=== PATIENT | male | born 1955 | race Caucasian/White ===

== ENCOUNTER 2017-10-28 11:11 | Emergency (ER) | payer OTHER ==
[2017-10-28 11:26] VITALS: RESP 18; TEMP 97.7; O2SAT 96
[2017-10-28] MEDS ORDERED: ACETAMINOPHEN 500 MG TAB PO ONE (11:50)
[2017-10-28] MEDS ORDERED: IBUPROFEN 600 MG TAB PO ONE (11:51)
[2017-10-28] MEDS ORDERED: DIAZEPAM 5 MG TAB PO ONE (11:51)
[2017-10-28] MEDS ORDERED: DIAZEPAM 5 MG PREPACK#4 BTL TAKEHOME ONE (12:51)
--- NOTE | 2017-10-28 12:53 | EDPHY ---
H & P Time Seen by Provider: 10/28/17 11:30 HPI/ROS: This patient presents with right lumbar back pain associated with muscle spasms. He explains that he intermittently has right lumbar pain that worsened significantly after shoveling snow , 4 days prior to arrival. His symptoms increased yesterday-Saturday with severe intensity at that time with partial relief from ibuprofen and 1 his cyclobenzaprine 10 mg tabs last night. He had 600 mg of ibuprofen again at 4:00 a.m. had no other medications this morning reports that the pain is slightly improved compared to yesterday currently 7/10 in intensity with movement. The nature the pain is achy. It does not radiate down his leg that he felt a did a bit yesterday. He denies any focal weakness. ROS: No fevers or chills. No other constitutional symptoms HEENT: No complaints line pulmonary: No cough shortness of breath Cardiovascular: No lightheadedness or other complaints including no chest pain GI: No abdominal pain. : No hematuria dysuria or other symptoms. Integumentary: No skin rash Neuro: He reports chronic paresthesias bilateral toes throughout all toes was had a negative workup for neuropathy in the past. No new focal weakness or numbness. No bowel or bladder incontinence. 10 point ROS is otherwise negative. Past Medical/Surgical History: Moderate obesity Chronic paresthesias in his toes. Social History: Occasional alcohol. No drug use. Smoking Status: Never smoked Physical Exam: Physical Exam Vital signs are normal. General: No acute distress Eyes: Pupils equal and react to light. Extraocular motions are intact. Lungs: Clear to auscultation bilaterally. No respiratory distress. Cardiac: Regular rate and rhythm with no murmur gallop rub. No pulsatile abdominal masses. Femoral pulses are 2+ and symmetric bilaterally. Abdomen: Soft, nontender Back: No midline tenderness. Patient has right paraspinous muscular tenderness with muscle spasm extends to the mid thoracic region. Straight leg raise is negative bilaterally. Skin: No rash or pallor. Neuro: Alert. Patient has 2+ symmetric patellar DTRs and weak but symmetric Achilles DTRs bilaterally. She maintains 5/5 strength in great toe dorsiflexion plantar flexion bilaterally. No light touch sensory deficits in his lower extremities. No saddle anesthesia Initial differential diagnosis: Low back strain, degenerative disc disease with exacerbation pain, disc herniation Constitutional: Initial Vital Signs Temperature (C) 36.5 C 10/28/17 11:24 Heart Rate 94 10/28/17 11:24 Respiratory Rate 18 10/28/17 11:24 Blood Pressure 165/100 H 10/28/17 11:24 O2 Sat (%) 96 10/28/17 11:24 O2 Delivery Mode Room Air Allergies/Adverse Reactions: diltiazem Allergy (Verified 10/28/17 11:57) pt reports rash Home Medications: Medication Instructions Recorded Levothyroxine 10/28/17 Methocarbamol [Robaxin 750 mg (*)] 750 - 1,500 mg PO QID PRN #30 tab 10/28/17 Metoprolol Tartrate 10/28/17 MDM/Departure - MDM Diagnostics: Lumbar spine x-rays: DJD no acute abnormalities Imaging Results: Imaging Impressions Lumbar Spine X-Ray 10/28/17 11:51 Impression: 1. No acute abnormality seen associated with the lumbar spine. 2. Right-sided hypertrophic osteophytes at L2-L3 and L3-L4. 3. Facet hypertrophy along the right side of the upper lumbar spine and more prominent along the left side of the lower lumbar spine. Imaging: Discussed imaging studies w/ body recall instructor Radiologist Medications Given: Discontinued Medications Acetaminophen (Tylenol) 1,000 mg PO EDNOW ONE Stop: 10/28/17 11:51 Last Admin: 10/28/17 11:55 Dose: 1,000 mg Diazepam (Valium) 5 mg PO EDNOW ONE Stop: 10/28/17 11:52 Last Admin: 10/28/17 11:54 Dose: 5 mg Diazepam (Valium 5 Mg Prepack#4) 1 btl TAKEHOME EDNOW ONE Stop: 10/28/17 12:52 Last Admin: 10/28/17 12:56 Dose: 1 btl Ibuprofen (Motrin) 600 mg PO EDNOW ONE Stop: 10/28/17 11:52 Last Admin: 10/28/17 11:55 Dose: 600 mg ED Course/Re-evaluation: Patient treated with ibuprofen a Valium and Tylenol with improvement. I counseled regarding low back strain, back stretches regarding his radiographs Discussion: Patient with low back strain without evidence of radiculopathy, cauda equina, vascular pathology or other concerning findings. Patient does understand the need to return emergency department if he has any significant worsening symptoms despite treatment plan. Will treat him with methocarbamol, ibuprofen Tylenol - Depart Disposition: Home, Routine, Self-Care Clinical Impression: Low back strain Qualifiers: Encounter type: initial encounter Qualified Code(s): S39.012A - Strain of muscle, fascia and tendon of lower back, initial encounter Condition: Good Instructions: Diazepam (By mouth), Low Back Strain (ED) Additional Instructions: DX: Low back strain Plan: Ibuprofen 400-600 mg per 6 hours regularly for the next week then as needed. For today, use Valium muscle relaxant if needed. 1 pill per [address], alcohol on this medication Methocarbamol muscle relaxants as needed once he feel this script. Tylenol in addition as needed for pain. Starts daily stretches prior to taking muscle relaxants and Vicodin in the morning. 3-5 minutes each of: "Butterfly stretch," "Sphinx stretch", "pigeon stretch", and hamstring stretch. Avoid lifting more than 5-10 pounds until symptoms improve. Call your primary care physician for a followup appointment in 3-7 days. Go to the emergency department for worsening of your symptoms despite the treatment plan. Prescriptions: Methocarbamol [Robaxin 750 mg (*)] 750 - 1,500 mg PO QID PRN #30 tab PRN Reason: Muscle Spasms Referrals: SUMIT SCHMITZ [Primary Care Provider] - As per Instructions
[2017-10-28 13:06] VITALS: BP 159/99; PULSE 92
== END 2017-10-28 13:00 | disposition home or self-care (01) ==
LOC: CED 11:11
DX: S39.012A Strain of muscle, fascia and tendon of lower back, initial encounter (principal); X58.XXXA Exposure to other specified factors, initial encounter; Y99.8 Other external cause status; Y93.H1 Activity, digging, shoveling and raking
CPT/HCPCS: 72100-PO